=== PATIENT | female | born 1950 | race Caucasian/White ===

== ENCOUNTER 2021-10-22 12:10 | Emergency (ER) | payer MEDICARE, OTHER ==
--- NOTE | 2021-10-22 12:37 | ERPHSYRPT ---
- History of Present Illness Time Seen by Provider: 10/22/21 12:30 Source: patient Exam Limitations: no limitations Patient Subjective Stated Complaint: pt reports pain under her left shoulder blade, reports it is intermittent in nature and feels like pleurisy that she's e xperienced in the past. denies any injury or accident. Triage Nursing Assessment: pt is aox3, pupils perrl, afebrile, resps easy and non labored, cap refill < 3 seconds, radial pulses strong and equal, pt abd soft non tender. pt pain increased with movement, ROM sensation intact. skin pink warm dry. Physician History: Patient is a 70-year-old female presents to our emergency department with complaints of pain to her left shoulder blade. Patient has a history of pleurisy. Patient states the symptoms feels like pleurisy. Symptoms started yesterday. The pain described as an intermittent sensation. Pain worse with movement and palpation. Pain improved with rest. Patient had a cardiac history of clinic stents. Patient denies chest pain. No nausea vomiting or diaphoresis. Symptoms are mild to moderate in intensity. Patient voices no other complaints or concerns at this time. Timing/Duration: today Severity: moderate Modifying Factors: Improves With: movement Associated Symptoms: denies symptoms Allergies/Adverse Reactions: Sulfa (Sulfonamide Antibiotics) Allergy (Verified 10/22/21 12:30) Hx Tetanus, Diphtheria Vaccination/Date Given: Yes Hx Influenza Vaccination/Date Given: Yes Hx Pneumococcal Vaccination/Date Given: Yes Immunizations Up to Date: Yes Travel Risk - International Travel Have you traveled outside of the country in past 3 weeks: No - Coronavirus Screening Are you exhibiting any of the following symptoms?: No Close contact with a COVID-19 positive Pt in past 14-21 Days: No - Vaccine Status Have you recieved a Covid-19 vaccination: Yes 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: Achaogen - Vaccination Dates Date of 2cond Vaccination (if applicable): unk - Review of Systems Constitutional: No Symptoms, No Fever, No Chills Eyes: No Symptoms Ears, Nose, & Throat: No Symptoms Respiratory: No Symptoms, No Cough, No Dyspnea Cardiac: No Symptoms, No Chest Pain, No Edema, No Syncope Abdominal/Gastrointestinal: No Symptoms, No Abdominal Pain, No Nausea, No Vomiting, No Diarrhea Genitourinary Symptoms: No Symptoms, No Dysuria Musculoskeletal: No Symptoms, No Back Pain, No Neck Pain Skin: No Symptoms, No Rash Neurological: No Symptoms, No Dizziness, No Focal Weakness, No Sensory Changes Psychological: No Symptoms Endocrine: No Symptoms Hematologic/Lymphatic: No Symptoms Immunological/Allergic: No Symptoms All Other Systems: Reviewed and Negative - Past Medical History Pertinent Past Medical History: Yes Cardiac History: Coronary Artery Disease, High Cholesterol, Hypertension, Myocardial Infarction ([place]) Respiratory History: Pneumonia GI Medical History: Diverticulitis Psycho-Social History: Anxiety - Past Surgical History Past Surgical History: Yes Cardiac: Cardiac Catheterization, Cardiac Stent Gastrointestinal: Colon Resection Other Surgical History: oophorecetomy - Social History Smoking Status: Current every day smoker Drug Use: none Patient Lives Alone: No - Female History Hx Now: No - Nursing Vital Signs Nursing Vital Signs: Initial Vital Signs Temperature 98 F 10/22/21 12:17 Pulse Rate 81 10/22/21 12:17 Respiratory Rate 18 10/22/21 12:17 Blood Pressure 200/91 10/22/21 12:17 O2 Sat by Pulse Oximetry 97 10/22/21 12:17 Pain Scale Pain Intensity [Left Back] 10 Pain Intensity 4 - Physical Exam General Appearance: no apparent distress, alert Eye Exam: PERRL/EOMI, eyes nml inspection Ears, Nose, Throat Exam: normal ENT inspection, TMs normal, pharynx normal, moist mucous membranes Neck Exam: normal inspection, non-tender, supple, full range of motion Respiratory Exam: normal breath sounds, lungs clear, airway intact, No chest tenderness, No respiratory distress Cardiovascular Exam: regular rate/rhythm, normal heart sounds, normal peripheral pulses, No murmur Gastrointestinal/Abdomen Exam: soft, normal bowel sounds, No tenderness, No mass Back Exam: normal inspection, normal range of motion, other (Tenderness to palpation over left scapula. There are areas that appear to be trigger points. These areas are tender to palpation reproduces symptoms.), No CVA tenderness, No vertebral tenderness Extremity Exam: normal inspection, normal range of motion, pelvis stable Neurologic Exam: alert, oriented x 3, cooperative, normal mood/affect, nml cerebellar function, nml station & gait, sensation nml, No motor deficits Skin Exam: normal color, warm, dry, No rash Lymphatic Exam: No adenopathy SpO2 Interpretation: normal SpO2: 97 O2 Delivery: Room Air - Course Nursing assessment & vital signs reviewed: Yes EKG Interpreted by Me: RATE (75), Sinus Rhythm, NORMAL AXIS, LAFB, NORMAL INTERVALS Ordered Tests: Active Orders 24 hr Category Date Time Status Yarn Examiner STAT Care 10/22/21 12:25 Active EKG-ER Only STAT Care 10/22/21 12:24 Active IV Insertion STAT Care 10/22/21 12:24 Active Pulse Oximetry (ED) STAT Care 10/22/21 12:24 Active CHEST WITH CONTRAST [CT] Stat Exams 10/22/21 13:34 Completed CBC W DIFF Stat Lab 10/22/21 12:47 Completed CMP Stat Lab 10/22/21 12:47 Completed D-DIMER QUANTITATIVE Stat Lab 10/22/21 12:47 Completed NT PRO BNP Stat Lab 10/22/21 12:47 Completed TROPONIN Q3H Lab 10/22/21 12:47 Completed TROPONIN Q3H Lab 10/22/21 15:09 Completed TROPONIN Q3H Lab 10/22/21 18:30 Ordered TROPONIN Q3H Lab 10/22/21 21:30 Ordered TROPONIN Q3H Lab 10/23/21 00:30 Ordered UA W/RFX UR CULTURE Stat Lab 10/22/21 15:05 Completed Medication Summary Discontinued Medications Generic Name Dose Route Start Last Admin Trade Name Freq PRN Reason Stop Dose Admin Hydromorphone HCl 0.5 mg 10/22/21 15:25 10/22/21 15:31 Hydromorphone 1 Mg/1ml Inj 1 Mg/Ml Syringe IV 10/22/21 15:26 0.5 mg STAT ONE Administration Hydromorphone HCl Confirm 10/22/21 15:30 Hydromorphone 1 Mg/1ml Inj 1 Mg/Ml Syringe Administered 10/22/21 15:31 Dose 1 mg .ROUTE .STK-MED ONE Morphine Sulfate Confirm 10/22/21 12:47 Morphine Sulfate 4 Mg/Ml Injection Administered 10/22/21 12:48 Dose 4 mg .ROUTE .STK-MED ONE Morphine Sulfate 4 mg 10/22/21 12:58 10/22/21 13:00 Morphine Sulfate 4 Mg/Ml Injection IV 10/22/21 12:59 4 mg STAT ONE Administration Ondansetron HCl Confirm 10/22/21 12:46 Ondansetron Hcl 4 Mg/2 Ml Vial Administered 10/22/21 12:47 Dose 4 mg .ROUTE .STK-MED ONE Ondansetron HCl 4 mg 10/22/21 12:58 10/22/21 13:00 Ondansetron Hcl 4 Mg/2 Ml Vial IV 10/22/21 12:59 4 mg STAT ONE Administration Lab/Rad Data: Laboratory Result Diagrams 10/22/21 12:47 10/22/21 12:47 Laboratory Results 10/22/21 10/22/21 10/22/21 Range/Units 15:09 15:05 12:47 WBC (4.0-10.5) K/mm3 RBC (4.1-5.4) M/mm3 Hgb (12.0-16.0) gm/dl Hct (35-47) % MCV (78-100) fl MCH (26-32) pg MCHC (32-36) g/dl RDW (11.5-14.0) % Plt Count (150-450) K/mm3 MPV (7.5-11.0) fl Gran % (36.0-66.0) % Eos # (Auto) (0-0.5) Absolute Lymphs (auto) (1.0-4.6) Absolute Monos (auto) (0.0-1.3) Lymphocytes % (24.0-44.0) % Monocytes % (0.0-12.0) % Eosinophils % (0.00-5.0) % Basophils % (0.0-0.4) % Absolute Granulocytes (1.4-6.9) Basophils # (0-0.4) D-Dimer (215-500) ng/mL Sodium (137-145) mmol/L Potassium (3.5-5.1) mmol/L Chloride (98-107) mmol/L Carbon Dioxide (22-30) mmol/L Anion Gap (5-15) MEQ/L BUN (7-17) mg/dL Creatinine (0.52-1.04) mg/dL Estimated GFR ML/MIN Glucose (74-106) mg/dL Calcium (8.4-10.2) mg/dL Total Bilirubin (0.2-1.3) mg/dL AST (14-36) U/L ALT (0-35) U/L Alkaline Phosphatase (38-126) U/L Troponin I < 0.012 < 0.012 (0.000-0.034) ng/mL NT-Pro-B Natriuret Pep (0-900) pg/mL Serum Total Protein (6.3-8.2) g/dL Albumin (3.5-5.0) g/dL Urine Color YELLOW (YELLOW) Urine Appearance CLOUDY (CLEAR) Urine pH 6.0 (5-6) Ur Specific [place] 1.018 (1.005-1.025) Urine Protein NEGATIVE (Negative) Urine Ketones NEGATIVE (NEGATIVE) Urine Blood NEGATIVE (0-5) Mat[place]/ul Urine Nitrite NEGATIVE (NEGATIVE) Urine Bilirubin NEGATIVE (NEGATIVE) Urine Urobilinogen NEGATIVE (0-1) mg/dL Ur Leukocyte Esterase NEGATIVE (NEGATIVE) Urine WBC (Auto) 3-5 (0-5) /HPF Urine RBC (Auto) 0-2 (0-2) /HPF U Epithel Cells (Auto) FEW (FEW) /HPF Urine Bacteria (Auto) RARE (NEGATIVE) /HPF Urine Mucus (Auto) SLIGHT (NEGATIVE) /HPF Urine Culture Reflexed NO (NO) Urine Glucose NEGATIVE (NEGATIVE) mg/dL 10/22/21 10/22/21 10/22/21 Range/Units 12:47 12:47 12:47 WBC 11.1 H (4.0-10.5) K/mm3 RBC 4.46 (4.1-5.4) M/mm3 Hgb 13.2 (12.0-16.0) gm/dl Hct 41.8 (35-47) % MCV 93.7 (78-100) fl MCH 29.6 (26-32) pg MCHC 31.6 L (32-36) g/dl RDW 13.7 (11.5-14.0) % Plt Count 285 (150-450) K/mm3 MPV 9.9 (7.5-11.0) fl Gran % 83.9 H (36.0-66.0) % Eos # (Auto) 0.08 (0-0.5) Absolute Lymphs (auto) 1.08 (1.0-4.6) Absolute Monos (auto) 0.61 (0.0-1.3) Lymphocytes % 9.7 L (24.0-44.0) % Monocytes % 5.5 (0.0-12.0) % Eosinophils % 0.7 (0.00-5.0) % Basophils % 0.2 (0.0-0.4) % Absolute Granulocytes 9.35 H (1.4-6.9) Basophils # 0.02 (0-0.4) D-Dimer 1288 H* (215-500) ng/mL Sodium 133 L (137-145) mmol/L Potassium 4.1 (3.5-5.1) mmol/L Chloride 100 (98-107) mmol/L Carbon Dioxide 28 (22-30) mmol/L Anion Gap 10.0 (5-15) MEQ/L BUN 15 (7-17) mg/dL Creatinine 0.88 (0.52-1.04) mg/dL Estimated GFR > 60.0 ML/MIN Glucose 127 H (74-106) mg/dL Calcium 8.9 (8.4-10.2) mg/dL Total Bilirubin 0.60 (0.2-1.3) mg/dL AST 19 (14-36) U/L ALT 16 (0-35) U/L Alkaline Phosphatase 107 (38-126) U/L Troponin I (0.000-0.034) ng/mL NT-Pro-B Natriuret Pep 220 (0-900) pg/mL Serum Total Protein 6.5 (6.3-8.2) g/dL Albumin 3.8 (3.5-5.0) g/dL Urine Color (YELLOW) Urine Appearance (CLEAR) Urine pH (5-6) Ur Specific [place] (1.005-1.025) Urine Protein (Negative) Urine Ketones (NEGATIVE) Urine Blood (0-5) Mati/ul Urine Nitrite (NEGATIVE) Urine Bilirubin (NEGATIVE) Urine Urobilinogen (0-1) mg/dL Ur Leukocyte Esterase (NEGATIVE) Urine WBC (Auto) (0-5) /HPF Urine RBC (Auto) (0-2) /HPF U Epithel Cells (Auto) (FEW) /HPF Urine Bacteria (Auto) (NEGATIVE) /HPF Urine Mucus (Auto) (NEGATIVE) /HPF Urine Culture Reflexed (NO) Urine Glucose (NEGATIVE) mg/dL - Progress Progress: improved Progress Note: Patient reassessed. She feels well. No active pain. Work-up essentially nonremarkable. Troponin negative x2. CT chest negative for acute pathology. 10/22/21 16:17 EKG normal sinus rhythm. Patient voices no other complaints or concerns at this time. No indication for further work-up. Will discharge home. Patient is aware of the adrenal adenomas and the other findings observed on CT scan. She agrees to follow-up with her primary care doctor within 48 hours for reevaluation. Portions of this note were created with voice recognition technology. There may be grammatical, spelling, punctuation or sound alike errors 10/22/21 16:18 Counseled pt/family regarding: lab results, diagnosis, need for follow-up, rad results - Departure Departure Disposition: Home Clinical Impression: Atherosclerosis, Hiatal hernia, Lung granuloma, Granulomatous disease, Adrenal adenoma, Renal cyst, Spondylosis, Pain in scapula Condition: Stable Critical Care Time: No Referrals: LAZARA WHITTEN [Primary Care Provider] - Follow up/PCP as directed Instructions: Muscle Strain (DC) Additional Instructions: Discharge/Care Plan MELODIE AIKEN was seen on 10/22/21 in the Emergency Room. The patient was counseled regarding Diagnosis,Lab results, Imaging studies, need for follow up and when to return to the Emergency Room. Prescriptions given: Discharge Note I have spoken with the patient and/or caregivers. I have explained the patient's condition, diagnosis and treatment plan based on the information available to me at this time. I have answered the patient's and/or caregiver's questions and addressed any concerns. The patient and/or caregivers have as good understanding of the patient's diagnosis, condition and treatment plan as can be expected at this point. The vital signs have been stable. The patient's condition is stable and appropriate for discharge from the emergency department. The patient will pursue further outpatient evaluation with the primary care physician or other designated or consulting physician as outlined in the discharge instructions. The patient and/or caregivers are agreeable to this plan of care and follow-up instructions have been explained in detail. The patient and/or caregivers have received these instruction. The patient/and or caregivers are aware that any significant change in condition or worsening of symptoms should prompt an immediate return to this or the closest emergency department or call 911.
[2021-10-22] MEDS ORDERED: Zofran 4 MG/2 ML VIAL ONE (12:46)
[2021-10-22] MEDS ORDERED: MORPHINE SULFATE 4 MG INJ ONE (12:47)
[2021-10-22 12:49] LABS: Absolute Neutrophil Ct (ANC) 9.35 (1.4-6.9); BASOPHIL % 0.2 % (0.0-0.4); Basophil (Absolute #) 0.02 (0-0.4); Eosinophil % 0.7 % (0.00-5.0); Eosinophil (Absolute #) 0.08 (0-0.5); Hematocrit 41.8 % (35-47); Hemoglobin 13.2 gm/dl (12.0-16.0); Lymphocyte (Absolute #) 1.08 (1.0-4.6); Lymphocytes % 9.7 % (24.0-44.0); Mean Cell Volume 93.7 fl (78-100); Mean Corpuscular Hemoglobin 29.6 pg (26-32); Mean Corpuscular Hgb Concent. 31.6 g/dl (32-36); Mean Platelet Volume 9.9 fl (7.5-11.0); Monocyte (Absolute #) 0.61 (0.0-1.3); Monocytes % 5.5 % (0.0-12.0); Neutrophil % 83.9 % (36.0-66.0); Platelet Count 285 K/mm3 (150-450); Red Blood Count 4.46 M/mm3 (4.1-5.4); Red Cell Distribution Width 13.7 % (11.5-14.0); White Blood Count 11.1 K/mm3 (4.0-10.5)
[2021-10-22] MEDS ORDERED: MORPHINE SULFATE 4 MG INJ IV ONE (12:58)
[2021-10-22] MEDS ORDERED: Zofran 4 MG/2 ML VIAL IV ONE (12:58)
[2021-10-22 14:04] LABS: ALBUMIN 3.8 g/dL (3.5-5.0); ALKALINE PHOSPHATASE 107 U/L (38-126); BLOOD UREA NITROGEN 15 mg/dL (7-17); CHLORIDE 100 mmol/L (98-107); Calcium 8.9 mg/dL (8.4-10.2); Carbon Dioxide 28 mmol/L (22-30); Creatinine 1 0.88 mg/dL (0.52-1.04); EST GLOMERULAR FILTRATION RATE > 60.0 ML/MIN; Glucose 127 mg/dL (74-106); NT PRO BNP 220 pg/mL (0-900); Potassium 4.1 mmol/L (3.5-5.1); SGOT/AST 19 U/L (14-36); SGPT/ALT 16 U/L (0-35); SODIUM 133 mmol/L (137-145); Total Protein 6.5 g/dL (6.3-8.2)
[2021-10-22] MEDS ORDERED: Hydromorphone 1 mg/ml Injection IV ONE (15:25)
[2021-10-22 15:26] LABS: Appearance CLOUDY (CLEAR); Bacteria RARE /HPF (NEGATIVE); Bilirubin NEGATIVE (NEGATIVE); Blood NEGATIVE Ery/ul (0-5); Epithelial Cells FEW /HPF (FEW); Glucose NEGATIVE (NEGATIVE); Ketones NEGATIVE (NEGATIVE); Leukocyte Esterase NEGATIVE (NEGATIVE); Mucus SLIGHT /HPF (NEGATIVE); Nitrite NEGATIVE (NEGATIVE); Protein,Urine Dip NEGATIVE (Negative); RBC 0-2 /HPF (0-2); Specific Gravity 1.018 (1.005-1.025); Urobilinogen NEGATIVE mg/dL (0-1)
[2021-10-22] MEDS ORDERED: Hydromorphone 1 mg/ml Injection ONE (15:30)
--- NOTE | 2021-10-22 16:00 | XRAY ---
Exam: CT of the chest with IV contrast per PE protocol from 10/22/2021. CTDI: 21.07 mGy Comparison: None. Indication: 70-year-old female for rule out PE. The patient complains of upper left chest pain and upper left back pain while breathing; cough; nausea. D-dimer is 1288. Findings: Technique: Post-IV contrast axial images were obtained through the chest during automated injection of 100 cc of Isovue-370 contrast material. Reconstructed coronal and sagittal images were created and reviewed. Findings: The pulmonary arteries are well-opacified within the lobar and segmental branches and reveal no filling defects to suggest pulmonary emboli. No thoracic aortic aneurysm or dissection is seen. Some atherosclerotic vascular calcification is seen within the aortic arch and descending thoracic aorta. The heart size is normal. No pericardial effusion is seen. A mild hiatal hernia is evident. No abnormal mediastinal mass or pathological lymphadenopathy is seen. A portion of both lobes of the thyroid gland is seen. The lung sharif reveal some posterior compression atelectasis within both lower lobes. There is also minimal scarring or atelectasis at the anterior lateral left lung base. No dense air space infiltrates, pneumothorax, or pleural fluid is seen. There is a tiny calcified granuloma at the medial right lung base on axial image #16. The distal trachea and major central branching bronchi appear open. A few granulomatous calcifications are seen at the posterior margin of the left hilum. The upper abdomen reveals some thickening of the limbs of the right adrenal gland. In fact, there is a 2.5 cm x 1.3 cm oval-shaped nodule within the medial limb of the right adrenal gland measuring +12.5 Hounsfield units. I cannot exclude an adrenal adenoma at this level. Also, within the left adrenal gland, there is a 2.5 cm x 2.0 cm soft tissue mass measuring +7.8 Hounsfield units which may represent an adrenal adenoma as well. There is a 1.2 cm in diameter cortical cyst at the posterior lateral aspect of the middle third of the left kidney on axial image #241. A few small granulomatous calcifications are seen within the liver and spleen. The gallbladder appears mildly dilated measuring up to 4.3 cm in greatest width on axial image #240. In addition, there are couple tiny calcifications seen along the inferior right lateral margin of the gallbladder. It is not clear to me whether these represent 2 tiny gallstones within the lumen or some calcification within the gallbladder wall on axial image #242. These are also seen on sagittal images #50 and #51. The skeleton reveals no acute fracture or aggressive bone lesion. Spondylosis is seen throughout the visualized thoracolumbar spine. Impression: 1. I see no evidence of acute pulmonary embolism, thoracic aortic aneurysm, or thoracic aortic dissection. Mild atherosclerotic vascular calcification is seen. 2. There is a mild retrocardiac hiatal hernia present. 3. Mild compression atelectasis is seen at the posterior margin of both lower lung sharif. I believe there is also some minimal scarring/atelectasis at the anterior lateral left lung base. No other active lung disease is seen. 4. There are couple small calcifications within a mildly dilated gallbladder along the lower right lateral margin which could possibly represent gallstones. Calcification within the gallbladder wall is not completely excluded. 5. Bilateral relatively low attenuation adrenal masses are seen which might represent adrenal adenomas. If further clarification is needed, an MRI of the adrenal glands with in phase and out of phase imaging could be performed. 6. Old healed granulomatous disease.
[2021-10-22 16:20] VITALS: BP 125/65; PULSE 68; O2SAT 93
== END 2021-10-22 16:24 | disposition home or self-care (01) ==
LOC: ED 12:10
DX: J84.10 Pulmonary fibrosis, unspecified (principal); D71 Functional disorders of polymorphonuclear neutrophils; D35.00 Benign neoplasm of unspecified adrenal gland; N28.1 Cyst of kidney, acquired; I70.90 Unspecified atherosclerosis; K44.9 Diaphragmatic hernia without obstruction or gangrene; M47.9 Spondylosis, unspecified; M25.519 Pain in unspecified shoulder; E78.5 Hyperlipidemia, unspecified; I10 Essential (primary) hypertension; Z72.0 Tobacco use
CPT/HCPCS: 36000; 36415; 71260; 80053; 81001; 83880; 84484; 85025; 85379; 93005; 93041; 94760; 96374; 96375; 99284; J1170; J2270; J2405

== ENCOUNTER 2021-12-17 13:16 | Emergency (ER) | payer MEDICARE, OTHER ==
[2021-12-17] MEDS ORDERED: Catapres 0.1 MG PO ONE (13:38)
[2021-12-17] MEDS ORDERED: Catapres 0.1 MG ONE (13:46)
--- NOTE | 2021-12-17 13:52 | ERPHSYRPT ---
- History of Present Illness Source: patient Exam Limitations: no limitations Patient Subjective Stated Complaint: " I got my carotid tests done today and they said my blood pressure was high. My daughter thought I should come to the ER. Triage Nursing Assessment: Pt presents to ER with complaints of hypertension, states had an appointment today for carotid studies and noted her BP was high. She wished to be evaulated for that. She did not take her home BP medications today, she forgot. Pt is hypertensive upon arrival. Pt skin is pink, warm, and dry. Respirations are easy. Pt appears a little anxious. Complains of light headedness, slight headache. Pt is able to ambulate and communicate appropriately. Physician History: 71 yo wf who did not take her BP meds today presents after carotid dopplers at [facility] today because her BP is high. Pt denies chest pain/focal weakness but does have some dyspnea and a mild headache. Timing/Duration: today Severity: mild, moderate Modifying Factors: Improves With: nothing Associated Symptoms: headaches, No nausea, No vomiting, No abdominal pain, No shortness of breath, No heartburn, No diaphoresis, No cough, No chills, No chest pain, No fever, No loss of appetite, No malaise, No rash, No syncope, No seizure Allergies/Adverse Reactions: Sulfa (Sulfonamide Antibiotics) Allergy (Verified 12/17/21 13:28) Home Medications: ALPRAZolam 0.25 MG [xanAX 0.25 MG] 0.25 mg PO Q12H PRN PRN 12/17/21 [History] Amlodipine Besylate 5 mg [Norvasc 5 mg] 5 mg PO DAILY 12/17/21 [History] Clopidogrel Bisulfate 75 mg [PLAVIX 75 MG Tablet] 75 mg PO DAILY 12/17/21 [History] Lisinopril 5 mg [Zestril 5 MG] 5 mg PO DAILY 12/17/21 [History] Simvastatin 20Mg [Zocor 20Mg] 40 mg PO DAILY 12/17/21 [History] Hx Tetanus, Diphtheria Vaccination/Date Given: Yes Hx Influenza Vaccination/Date Given: Yes Hx Pneumococcal Vaccination/Date Given: No Immunizations Up to Date: Yes Travel Risk - International Travel Have you traveled outside of the country in past 3 weeks: No - Coronavirus Screening Are you exhibiting any of the following symptoms?: No Close contact with a COVID-19 positive Pt in past 14-21 Days: Yes - Vaccine Status Have you recieved a Covid-19 vaccination: Yes 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 - Vaccination Dates Date of 2cond Vaccination (if applicable): 2020 - Review of Systems Constitutional: No Symptoms Eyes: No Symptoms Ears, Nose, & Throat: No Symptoms Respiratory: No Symptoms Cardiac: No Symptoms Abdominal/Gastrointestinal: No Symptoms Genitourinary Symptoms: No Symptoms Musculoskeletal: No Symptoms Skin: No Symptoms Neurological: No Symptoms, Headache Psychological: No Symptoms Endocrine: No Symptoms Hematologic/Lymphatic: No Symptoms Immunological/Allergic: No Symptoms - Past Medical History Pertinent Past Medical History: Yes Cardiac History: Coronary Artery Disease, High Cholesterol, Hypertension, Myocardial Infarction ([place]) Respiratory History: Pneumonia GI Medical History: Diverticulitis Psycho-Social History: Anxiety - Past Surgical History Past Surgical History: Yes Cardiac: Cardiac Catheterization, Cardiac Stent Gastrointestinal: Colon Resection Other Surgical History: oophorecetomy - Social History Smoking Status: Light tobacco smoker Exposure to second hand smoke: No Drug Use: none Patient Lives Alone: No Significant Family History: no pertinent family hx - Female History Hx Now: No - Nursing Vital Signs Nursing Vital Signs: Initial Vital Signs Temperature 96.1 F 12/17/21 13:24 Pulse Rate 95 H 12/17/21 13:24 Respiratory Rate 18 12/17/21 13:24 Blood Pressure 234/91 12/17/21 13:24 O2 Sat by Pulse Oximetry 94 L 12/17/21 13:24 Pain Scale Pain Intensity 0 Hypertensive - Physical Exam General Appearance: no apparent distress Eye Exam: PERRL/EOMI, eyes nml inspection Ears, Nose, Throat Exam: normal ENT inspection, TMs normal, pharynx normal, moist mucous membranes Neck Exam: normal inspection, non-tender, supple, full range of motion, No meningismus, No mass, No Brudzinski, No Kernig's Respiratory Exam: normal breath sounds, lungs clear, airway intact Cardiovascular Exam: regular rate/rhythm, normal heart sounds, normal peripheral pulses, No murmur Gastrointestinal/Abdomen Exam: soft, normal bowel sounds, No tenderness Back Exam: normal inspection, normal range of motion, No CVA tenderness, No vertebral tenderness Extremity Exam: normal inspection, normal range of motion Neurologic Exam: alert, oriented x 3, cooperative, hollow ware maker II-XII nml as tested, normal mood/affect, nml cerebellar function, nml station & gait, sensation nml Skin Exam: normal color, warm, dry Lymphatic Exam: No adenopathy SpO2: 94 O2 Delivery: Room Air - Course EKG Interpreted by Me: RATE (NSR/R74/Prolonged QTc/LAFB/Poor Rwave pr ogression/Flat Twaves) - CT Exams Head CT Interpretation: Discussed w/radiologist (Nothing acute) Ordered Tests: Active Orders 24 hr Category Date Time Status EKG-ER Only STAT Care 12/17/21 13:50 Completed HEAD WITHOUT CONTRAST [CT] Stat Exams 12/17/21 13:50 Completed CBC W DIFF Stat Lab 12/17/21 14:00 Completed CMP Stat Lab 12/17/21 14:00 Completed NT PRO BNP Stat Lab 12/17/21 14:00 Completed TROPONIN Q3H Lab 12/17/21 14:00 Completed Medication Summary Discontinued Medications Generic Name Dose Route Start Last Admin Trade Name Tom PRN Reason Stop Dose Admin Clonidine 0.2 mg 12/17/21 13:38 12/17/21 13:47 Clonidine Hcl 0.1 Mg Tablet PO 12/17/21 13:39 0.2 mg STAT ONE Administration Clonidine Confirm 12/17/21 13:46 Clonidine Hcl 0.1 Mg Tablet Administered 12/17/21 13:47 Dose 0.2 mg .ROUTE .STK-MED ONE Lab/Rad Data: Laboratory Result Diagrams 12/17/21 14:00 12/17/21 14:00 Laboratory Results 12/17/21 12/17/21 12/17/21 Range/Units 14:00 14:00 14:00 WBC 8.4 (4.0-10.5) K/mm3 RBC 4.67 (4.1-5.4) M/mm3 Hgb 13.9 (12.0-16.0) gm/dl Hct 43.3 (35-47) % MCV 92.7 (78-100) fl MCH 29.8 (26-32) pg MCHC 32.1 (32-36) g/dl RDW 14.4 H (11.5-14.0) % Plt Count 290 (150-450) K/mm3 MPV 10.6 (7.5-11.0) fl Gran % 79.6 H (36.0-66.0) % Eos # (Auto) 0.12 (0-0.5) Absolute Lymphs (auto) 1.11 (1.0-4.6) Absolute Monos (auto) 0.47 (0.0-1.3) Lymphocytes % 13.2 L (24.0-44.0) % Monocytes % 5.6 (0.0-12.0) % Eosinophils % 1.4 (0.00-5.0) % Basophils % 0.2 (0.0-0.4) % Absolute Granulocytes 6.69 (1.4-6.9) Basophils # 0.02 (0-0.4) Sodium 141 (137-145) mmol/L Potassium 4.0 (3.5-5.1) mmol/L Chloride 106 (98-107) mmol/L Carbon Dioxide 28 (22-30) mmol/L Anion Gap 11.2 (5-15) MEQ/L BUN 15 (7-17) mg/dL Creatinine 0.86 (0.52-1.04) mg/dL Estimated GFR > 60.0 ML/MIN Glucose 133 H (74-106) mg/dL Calcium 9.2 (8.4-10.2) mg/dL Total Bilirubin 0.50 (0.2-1.3) mg/dL AST 22 (14-36) U/L ALT 17 (0-35) U/L Alkaline Phosphatase 102 (38-126) U/L Troponin I < 0.012 (0.000-0.034) ng/mL NT-Pro-B Natriuret Pep 366 (0-900) pg/mL Serum Total Protein 6.6 (6.3-8.2) g/dL Albumin 3.9 (3.5-5.0) g/dL - Progress Progress: improved Progress Note: 12/17/21 15:05 BP decreased after 0.2 po Clonidine - Departure Departure Disposition: Home Clinical Impression: Hypertensive urgency Condition: Stable Critical Care Time: No Referrals: LAZARA WHITTEN [Primary Care Provider] - Follow up/PCP as directed Instructions: Malignant Hypertension (DC) Additional Instructions: Take your blood pressure medication when you get home Return to ER for chest pain/focal weakness/worsening headache
--- NOTE | 2021-12-17 14:22 | XRAY ---
Indication: Headache. High blood pressure. Multiple contiguous axial images obtained through the head without contrast. Comparison: None Normal appearing brain parenchyma, ventricles, and bony calvarium for patient's age. Mild mucosal thickening of both maxillary and lesser degree both ethmoid sinuses. Mastoid air cells are clear. Impression: Mild paranasal sinus disease. Remaining CT head without contrast exam is normal.
[2021-12-17 14:30] LABS: Absolute Neutrophil Ct (ANC) 6.69 (1.4-6.9); Basophil (Absolute #) 0.02 (0-0.4); Eosinophil % 1.4 % (0.00-5.0); Eosinophil (Absolute #) 0.12 (0-0.5); Hematocrit 43.3 % (35-47); Hemoglobin 13.9 gm/dl (12.0-16.0); Lymphocyte (Absolute #) 1.11 (1.0-4.6); Lymphocytes % 13.2 % (24.0-44.0); Mean Cell Volume 92.7 fl (78-100); Mean Corpuscular Hemoglobin 29.8 pg (26-32); Mean Corpuscular Hgb Concent. 32.1 g/dl (32-36); Mean Platelet Volume 10.6 fl (7.5-11.0); Monocyte (Absolute #) 0.47 (0.0-1.3); Monocytes % 5.6 % (0.0-12.0); Neutrophil % 79.6 % (36.0-66.0); Platelet Count 290 K/mm3 (150-450); Red Blood Count 4.67 M/mm3 (4.1-5.4); Red Cell Distribution Width 14.4 % (11.5-14.0); White Blood Count 8.4 K/mm3 (4.0-10.5)
[2021-12-17 14:46] LABS: ALBUMIN 3.9 g/dL (3.5-5.0); ALKALINE PHOSPHATASE 102 U/L (38-126); ANION GAP 11.2 MEQ/L (5-15); BLOOD UREA NITROGEN 15 mg/dL (7-17); CHLORIDE 106 mmol/L (98-107); Calcium 9.2 mg/dL (8.4-10.2); Carbon Dioxide 28 mmol/L (22-30); Creatinine 1 0.86 mg/dL (0.52-1.04); EST GLOMERULAR FILTRATION RATE > 60.0 ML/MIN; Glucose 133 mg/dL (74-106); NT PRO BNP 366 pg/mL (0-900); SGOT/AST 22 U/L (14-36); SGPT/ALT 17 U/L (0-35); SODIUM 141 mmol/L (137-145); Total Protein 6.6 g/dL (6.3-8.2)
[2021-12-17 15:04] VITALS: BP 161/94; PULSE 70
[2021-12-17 15:06] VITALS: O2SAT 94
== END 2021-12-17 15:20 | disposition home or self-care (01) ==
LOC: ED 13:16
DX: I16.0 Hypertensive urgency (principal); I10 Essential (primary) hypertension; Z72.0 Tobacco use; R06.00 Dyspnea, unspecified; R51.9 Headache, unspecified; I25.10 Atherosclerotic heart disease of native coronary artery without angina pectoris; E78.5 Hyperlipidemia, unspecified; Z79.01 Long term (current) use of anticoagulants; Z79.899 Other long term (current) drug therapy
CPT/HCPCS: 36000; 36415; 70450; 80053; 83880; 84484; 85025; 93005; 99284; A9270-GY

== ENCOUNTER 2024-07-16 09:25 | Emergency (ER) | payer MEDICARE, OTHER ==
[2024-07-16 09:37] VITALS: RESP 18; TEMP 97.2
--- NOTE | 2024-07-16 09:48 | ERPHSYRPT ---
- History of Present Illness Time Seen by Provider: 07/16/24 09:42 Source: patient Exam Limitations: no limitations Patient Subjective Stated Complaint: Pt states "I mowed and weedeated on friday and on fri I could not get out of bed and my lower back is killing me. I co uldn't sleep last night at all and I have not taken any of my meds today>" Triage Nursing Assessment: Pt presented alert and oriented X 3, skin pwd. PT ambulates with a slow stiff gait. Pt moans when she moves and relaxes when she stops moving. Physician History: Patient is here with right low back pain. Patient states that she was doing more mowing and weed whacking 3 days prior to arrival. She had no falls or other trauma. States that she was just more active than normal. She woke up and she had pain over her right sciatic nerve radiating down her right leg. She states that she has no other red flag symptoms for back pain. She has no numbness, saddle anesthesia, loss of bowel or bladder dysfunction, previous history of cancer or known bone metastasis. She states that she took ibuprofen at home for the pain. This did help somewhat. Patient states that her last dose of ibuprofen was greater than 48 hours ago. Patient is taking PO well. Same number of urinations and defecations. The patient has no signs of altered mental status, nuchal rigidity, signs of meningitis. The patient is up-to-date on all vaccinations. Allergies/Adverse Reactions: Sulfa (Sulfonamide Antibiotics) Allergy (Verified 12/17/21 13:28) Home Medications: ALPRAZolam 0.25 MG [xanAX 0.25 MG] 0.25 mg PO Q12H PRN PRN 12/17/21 [History] Amlodipine Besylate 5 mg [Norvasc 5 mg] 5 mg PO DAILY 12/17/21 [History] Clopidogrel Bisulfate [PLAVIX Tablet] 75 mg PO DAILY 12/17/21 [History] Lisinopril 5 mg [Zestril 5 MG] 5 mg PO DAILY 12/17/21 [History] Simvastatin 20Mg [Zocor 20Mg] 40 mg PO DAILY 12/17/21 [History] Hx Tetanus, Diphtheria Vaccination/Date Given: Yes Hx Influenza Vaccination/Date Given: Yes Hx Pneumococcal Vaccination/Date Given: No Immunizations Up to Date: No Travel Risk - International Travel Have you traveled outside of the country in past 3 weeks: No - Emerging Infectious Disease Are you exhibiting symptoms associated with any current EIDs: No - Past Medical History Pertinent Past Medical History: Yes Cardiac History: Coronary Artery Disease, High Cholesterol, Hypertension, Myocardial Infarction ([place]) Respiratory History: Pneumonia GI Medical History: Diverticulitis Psycho-Social History: Anxiety - Past Surgical History Past Surgical History: Yes Cardiac: Cardiac Catheterization, Cardiac Stent Gastrointestinal: Colon Resection Other Surgical History: oophorecetomy Significant Family History: no pertinent family hx - Social History Smoking Status: Light tobacco smoker Exposure to second hand smoke: No Drug Use: none Patient Lives Alone: No - Social Determinants of Health Will the patient participate in the screening: Yes Do you worry about a steady place to live?: No Do you have any problems with any of the following?: No known problems In the past 12 months,have you had to go without utilities?: No Transportation Issues: No Has anyone in your support network made you feel unsafe?: No Have you or anyone in your house had to go without enough: No - Nursing Vital Signs Nursing Vital Signs: Initial Vital Signs Temperature 97.2 F 07/16/24 09:32 Pulse Rate 64 07/16/24 09:32 Respiratory Rate 18 07/16/24 09:32 Blood Pressure 202/100 07/16/24 09:32 O2 Sat by Pulse Oximetry 95 07/16/24 09:32 Pain Scale Pain Intensity [Lower Back] 6 Pain Intensity 4 - Physical Exam SpO2 Interpretation: normal SpO2: 95 Comments: 07/16/24 09:47 Review of Systems Constitutional: Negative for fever. HENT: Negative for congestion. Respiratory: Negative for shortness of breath. Cardiovascular: Negative for chest pain. Gastrointestinal: Negative for abdominal pain. Genitourinary: Negative for dysuria. Musculoskeletal: Back pain Skin: Negative for rash. Neurological: Negative for headaches. Psychiatric/Behavioral: Negative for behavioral problems. All other systems reviewed and are negative. Physical Exam Vitals signs and nursing note reviewed. Constitutional: Appearance: Patient is well-developed. HENT: Head: Normocephalic and atraumatic. Eyes: Conjunctiva/sclera: Conjunctivae normal. Neck: Musculoskeletal: Normal range of motion. Trachea: No tracheal deviation. Cardiovascular: Rate and Rhythm: Normal rate. Pulmonary: Effort: Pulmonary effort is normal. No respiratory distress. Abdominal: Palpations: Abdomen is soft. Musculoskeletal: General: Right low back tenderness over sciatic nerve. No obvious deformity, sensation intact, 2+ capillary refill, 2 point tactile discrimination intact. 5 out of 5 strength. Full range of motion without pain. Compartments are soft, nontender. Overlying skin shows no tenting, bruising, ecchymosis. No saddle anesthesia Skin: General: Skin is warm and dry. Neurological/ Psychiatric: Mental Status: Mental status, behavior, interaction with environment is appropriate for patient's age and condition - Course Nursing assessment & vital signs reviewed: Yes Ordered Tests: Active Orders 24 hr Category Date Time Status HIP UNI (2V) INCL PEL IF DONE Stat Exams 07/16/24 09:42 Completed LUMBAR LIMITED (2 OR 3 VIEWS) Stat Exams 07/16/24 09:43 Completed Medication Summary Discontinued Medications Generic Name Dose Route Start Last Admin Trade Name Tom PRN Reason Stop Dose Admin Acetaminophen 1,000 mg 07/16/24 09:43 07/16/24 10:00 Acetaminophen 500 Mg Tablet PO 07/16/24 09:44 1,000 mg STAT STA Administration Acetaminophen Confirm 07/16/24 09:55 Acetaminophen 500 Mg Tablet Administered 07/16/24 09:56 Dose 1,000 mg .ROUTE .STK-MED ONE Lidocaine 1 patch 07/16/24 09:43 07/16/24 10:00 Lidocaine Hcl 1 Patch Patch TOP 07/16/24 09:44 1 patch ONCE ONE Administration Oxycodone HCl 10 mg 07/16/24 10:57 Oxycodone Hcl 10 Mg Controlled Release Tablet PO 07/16/24 10:58 ONCE ONE - Progress Progress: improved Progress Note: 07/16/24 09:47 Plan for x-ray, oral pain medication, lidocaine patch here in the emergency department 07/16/24 11:01 Patient's pain is improving. X-ray negative for acute fracture, dislocation, other obvious abnormality. Patient's pain is most in line with acute sciatic back pain. Plan to treat with lidocaine patches going home, Medrol Dosepak. Patient will follow-up closely with her PCP for neurological reexam. We did give 1 oral oxycodone given continued pain here in the emergency department. She will get a ride home and return for her car tomorrow. We did discuss typical narcotic precautions with the patient and her who was present. Strict turn precautions given. Counseled pt/family regarding: diagnosis, need for follow-up, rad results - Departure Departure Disposition: Home Clinical Impression: Right sciatic nerve pain Condition: Stable Critical Care Time: No Referrals: EARNEST VALDEZ MD [Primary Care Provider] - Follow up/PCP as directed Instructions: Low Back Pain (DC), Sciatica (DC) Prescriptions: Lidocaine HCl 5% Patch [Lidoderm Patch 5%] 1 patch TP DAILY 7 Days #7 patch Methylprednisolone Packet [Medrol Dosepack] 4 mg PO UD #30 packet
[2024-07-16] MEDS ORDERED: TYLENOL EXTRA STRENGTH 500 MG ONE (09:55)
[2024-07-16] MEDS: TYLENOL EXTRA STRENGTH 500 MG PO STA (10:00)
[2024-07-16] MEDS: Lidoderm Patch 5% TOP ONE (10:00)
--- NOTE | 2024-07-16 10:37 | XRAY ---
Indication: Pain. No known injury. Comparison: None 3 view lumbar spine demonstrates 5 lumbar segments with osteopenia, mild/moderate multilevel degenerative spondylosis greatest at L5-S1, degenerative changes both hips reported separately, pelvic suture material, and extensive scattered vascular calcifications. No other bony, articular, or soft tissue abnormalities.
--- NOTE | 2024-07-16 10:39 | XRAY ---
Indication: Right hip pain. No known injury. Comparison: None AP pelvis and 2 view right hip demonstrates osteopenia, lower lumbar degenerative spondylosis reported separately, moderate degenerative changes both hips, 1 cm right groin calcified node, pelvic suture material, and extensive scattered vascular calcifications. No other bony, articular, or soft tissue abnormalities.
[2024-07-16 10:51] VITALS: O2SAT 95
[2024-07-16 11:03] VITALS: BP 175/72; PULSE 52
[2024-07-16] MEDS ORDERED: OXYCODONE-ACETAMINOPHEN 10-325 ONE (11:03)
[2024-07-16] MEDS: Oxycontin 10 MG ER PO ONE (11:16)
== END 2024-07-16 11:23 | disposition home or self-care (01) ==
LOC: ED 09:25
DX: M54.31 Sciatica, right side (principal); E78.5 Hyperlipidemia, unspecified; I10 Essential (primary) hypertension; Z79.52 Long term (current) use of systemic steroids; Z79.02 Long term (current) use of antithrombotics/antiplatelets; Z79.899 Other long term (current) drug therapy; Z72.0 Tobacco use
CPT/HCPCS: 72100; 73502; 99283; A9270-GY

== ENCOUNTER 2025-10-07 11:33 | Emergency (ER) | payer MEDICARE, OTHER ==
[2025-10-07 11:46] VITALS: TEMP 97.9
[2025-10-07 12:57] LABS: BASOPHIL % 0.7 % (0.1-1.2); Basophil (Absolute #) 0.06 x10^3/uL (0.01-0.08); Eosinophil (Absolute #) 0.14 x10^3/uL (0.04-0.36); Hematocrit 43.1 % (34.1-44.9); Hemoglobin 14.1 g/dL (11.2-15.7); IMMATURE GRAN # 0.04 x10^3u/L (0.001-0.031); IMMATURE GRAN % 0.5 % (0.001-0.429); Lymphocyte (Absolute #) 1.42 x10^3/uL (1.18-3.74); Mean Corpuscular Hemoglobin 30.0 pg (25.6-32.2); Mean Corpuscular Hgb Concent. 32.7 g/dL (32.2-35.5); Monocyte (Absolute #) 0.58 x10^3/uL (0.24-0.86); NUCLEATED RBC # 0.00 x10^3u/L (0.00-0.012); NUCLEATED RBC % 0.0 % (0.00-0.2); Platelet Count 271 x10^3/uL (182-369); Red Blood Count 4.70 x10^6/uL (3.93-5.22); White Blood Count 8.5 x10^3/uL (3.98-10.04)
[2025-10-07 13:02] LABS: Calcium 9.8 mg/dL (8.4-10.2); Carbon Dioxide 24.0 mmol/L (22-30); Creatinine 1 0.89 mg/dL (0.52-1.04); EST GLOMERULAR FILTRATION RATE 68.8 ML/MIN; Glucose 104.0 mg/dL (74-106); Potassium 4.4 mmol/L (3.5-5.1); SGOT/AST 29.0 U/L (14-36); SGPT/ALT 20.0 U/L (0-35); Total Protein 7.2 g/dL (6.3-8.2)
--- NOTE | 2025-10-07 13:15 | XRAY ---
Indication: Short of breath. Comparison: None PA/lateral chest hyperinflated and clear. Heart not enlarged with incidental coronary stent. Bony thorax intact with osteopenia and mild degenerative changes. Impression: Nonacute chest with chronic features.
[2025-10-07 13:16] LABS: NT PRO BNPII 461.0 pg/mL (<300); TROPONIN 0.013 ng/mL (0.000-0.033)
--- NOTE | 2025-10-07 15:32 | XRAY ---
Indication: Elevated D-dimer. Pulmonary embolus. Multiple contiguous axial images obtained through the chest using 80 cc Isovue 370 contrast and PE protocol. Comparison: October 22, 2021 Good opacification pulmonary arteries to include lobar and segmental branches. No pulmonary embolus. Heart not enlarged again with scattered coronary calcifications. Aorta again mildly arteriosclerotic without aneurysm/dissection. Stable small left hilar calcified node. No pathologic mediastinal/hilar lymphadenopathy. Interval enlarging moderate-sized hiatal hernia again with partial intrathoracic stomach. Lungs again demonstrates minimal bibasilar dependent atelectasis. No interval developing pulmonary mass/nodule, infiltrate, or effusion. Bony thorax intact again with osteopenia and minimal/mild multilevel degenerative spondylosis. New concave deformity superior endplate T11 either remote fracture versus Schmorl node. Limited upper abdomen again demonstrates incidental tiny fundal gallbladder, small left renal cysts, and small bilateral adrenal adenomas. Impression: 1. Continued negative for pulmonary embolus. No new/acute cardiopulmonary abnormalities. 2. Chronic findings including arteriosclerotic disease, hiatal hernia with partial intrathoracic stomach, chronic bony findings, tiny gallstone, small left renal cysts, small bilateral adrenal adenomas, and old granulomatous disease.
[2025-10-07] MEDS: DUONEB 0.5-3 MG/3 ml Neb IH ONE (16:35)
[2025-10-07] MEDS ORDERED: DUONEB 0.5-3 MG/3 ml Neb IH ONE (16:35)
[2025-10-07 21:08] VITALS: PULSE 60
[2025-10-07 22:02] VITALS: BP 163/82; RESP 21; O2SAT 93
--- NOTE | 2025-10-07 22:14 | ERPHSYRPT ---
- History of Present Illness Time Seen by Provider: 10/07/25 12:12 Patient Subjective Stated Complaint: Pt. states, "My blood pressure has been running high since Friday when I went to heart doctor, they weren't too concerned about it. They just told me to monitor and then call if I felt bad." Triage Nursing Assessment: Pt. ambulated to room without difficulty, A&Ox3, Skin P/W/D, REsp. normal, slightly labored, SOB at rest, unable to speak full sentences, Able to move all four extremities. Physician History: 74-year-old female ho coronary artery disease, status post multiple stents 5 years ago+, followed closely by cardiology at [facility], presenting with several weeks of shortness of breath, with acute worsening of dyspnea x 1 week. 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 over the last few days she has been unable to walk around her home, is short of breath after approximately 5 feet and has to stop and catch her breath. Daughter has noticed that she is unable to finish her sentences without stopping to catch her breath. No chest pain. However notes jaw tightness sensation. She notes that her prior heart attacks never presented with chest pain, but rather dyspnea similar to this episode. No fevers, chills, cough, URI symptoms. No history of asthma or COPD. No GI symptoms. No syncope or palpitations. Has been tracking her blood pressures at home. Over the last week has been logging her blood pressures at home which have been persistently elevated 190- 200s. Denies vision changes, diplopia. No headache currently. Allergies/Adverse Reactions: Sulfa (Sulfonamide Antibiotics) Allergy (Verified 12/17/21 13:28) Home Medications: Amlodipine Besylate 5 mg [Norvasc 5 mg] 5 mg PO DAILY 10/07/25 [History] Atorvastatin Calcium 80 mg PO DAILY 10/07/25 [History] Frantz/D3/Mag11/Zinc/Electrification Adviser/Cesar/Bor [Caltrate 600+D Plus Tablet] 1 each PO DAILY 10/07/25 [History] Carvedilol 3.125 mg [Coreg 3.125 MG] 3.125 mg PO BID 10/07/25 [History] Cholecalciferol (Vitamin D3) [Vitamin D] 5,000 unit PO DAILY 10/07/25 [History] Clopidogrel Bisulfate [Plavix] 75 mg PO DAILY 10/07/25 [History] Losartan Potassium 100 mg PO DAILY 10/07/25 [History] Metformin HCl 500 mg [Glucophage 500 MG] 500 mg PO DAILY 10/07/25 [History] Hx Tetanus, Diphtheria Vaccination/Date Given: Yes Hx Influenza Vaccination/Date Given: Yes Hx Pneumococcal Vaccination/Date Given: Yes Travel Risk - International Travel Have you traveled outside of the country in past 3 weeks: No - Emerging Infectious Disease Are you exhibiting symptoms associated with any current EIDs: No - Past Medical History Pertinent Past Medical History: Yes Cardiac History: Coronary Artery Disease, High Cholesterol, Hypertension, Myocardial Infarction ([place]) Respiratory History: Pneumonia GI Medical History: Diverticulitis Psycho-Social History: Anxiety - Past Surgical History Past Surgical History: Yes Cardiac: Cardiac Catheterization, Cardiac Stent Gastrointestinal: Colon Resection Other Surgical History: oophorecetomy Significant Family History: no pertinent family hx - Social History Smoking Status: Former smoker Exposure to second hand smoke: Yes Drug Use: none - Social Determinants of Health Will the patient participate in the screening: Declined to provide - Nursing Vital Signs Nursing Vital Signs: Initial Vital Signs Pulse Rate 46 L 10/07/25 11:31 Respiratory Rate 14 10/07/25 11:31 Blood Pressure 183/70 10/07/25 11:31 Pain Scale Pain Intensity 0 - Physical Exam Respiratory Exam: normal breath sounds, lungs clear, No crackles/rales, No wheezing Cardiovascular/Chest Exam: normal heart sounds, normal peripheral pulses, bradycardia Abdominal/Gastrointestinal Exam: soft, No tenderness, No distention Neurologic Exam: alert, oriented x 3, cooperative SpO2 Interpretation: normal SpO2: 93 Ordered Tests: Active Orders 24 hr Category Date Time Status EKG-ER Only STAT Care 10/07/25 17:08 Completed CHEST 2 VIEWS (PA AND LAT) Stat Exams 10/07/25 12:43 Completed CHEST WITH CONTRAST [CT] Stat Exams 10/07/25 13:38 Completed CBC W DIFF Stat Lab 10/07/25 11:45 Completed CMP Stat Lab 10/07/25 11:45 Completed D-DIMER QUANTITATIVE Stat Lab 10/07/25 11:45 Completed Direct Bilirubin Stat Lab 10/07/25 11:45 Completed Lactic Acid Stat Lab 10/07/25 12:43 Completed NT PRO BNPII Stat Lab 10/07/25 11:45 Completed TROPONIN Q4H Lab 10/07/25 11:45 Completed TROPONIN Q4H Lab 10/07/25 17:15 Completed TROPONIN Q4H Lab 10/07/25 21:10 Completed Respiratory Therapy Assessment DAILY RT 10/07/25 16:52 Active Medication Summary Discontinued Medications Generic Name Dose Route Start Last Admin Trade Name Tom PRN Reason Stop Dose Admin Albuterol/Ipratropium 3 ml 10/07/25 16:33 10/07/25 16:35 Ipratropium/Albuterol Sulfate 3 Ml Ampul.Neb IH 10/07/25 16:34 3 ml STAT ONE Administration Albuterol/Ipratropium Confirm 10/07/25 16:35 Ipratropium/Albuterol Sulfate 3 Ml Ampul.Neb Administered 10/07/25 16:36 Dose 3 ml IH .STK-MED ONE Lab/Rad Data: Laboratory Result Diagrams 10/07/25 11:45 10/07/25 11:45 Laboratory Results 10/07/25 10/07/25 10/07/25 Range/Units 21:10 17:15 12:43 WBC (3.98-10.04) x10^3/uL RBC (3.93-5.22) x10^6/uL Hgb (11.2-15.7) g/dL Hct (34.1-44.9) % MCV (79.4-94.8) fL MCH (25.6-32.2) pg MCHC (32.2-35.5) g/dL RDW (11.7-14.4) % Plt Count (182-369) x10^3/uL MPV (9.4-12.3) fL Gran % (34.0-71.1) % Immature Gran % (Auto) (0.001-0.429) % Nucleat RBC Rel Count (0.00-0.2) % Eos # (Auto) (0.04-0.36) x10^3/uL Immature Gran # (Auto) (0.001-0.031) x10^3u/L Absolute Lymphs (auto) (1.18-3.74) x10^3/uL Absolute Monos (auto) (0.24-0.86) x10^3/uL Absolute Nucleated RBC (0.00-0.012) x10^3u/L Lymphocytes % (19.3-51.7) % Monocytes % (4.7-12.5) % Eosinophils % (0.7-5.8) % Basophils % (0.1-1.2) % Absolute Granulocytes (1.56-6.13) x10^3/uL Basophils # (0.01-0.08) x10^3/uL D-Dimer (0.0-0.50) mg/L Sodium (135-145) mmol/L Potassium (3.5-5.1) mmol/L Chloride (98-107) mmol/L Carbon Dioxide (22-30) mmol/L Anion Gap (5-15) MEQ/L BUN (7-17) mg/dL Creatinine (0.52-1.04) mg/dL Estimated GFR ML/MIN Glucose (74-106) mg/dL Lactic Acid 1.4 (0.4-2.0) Calcium (8.4-10.2) mg/dL Total Bilirubin (0.2-1.3) mg/dL Direct Bilirubin (0.0-0.4) mg/dL AST (14-36) U/L ALT (0-35) U/L Alkaline Phosphatase (38-126) U/L Troponin I 0.016 0.014 (0.000-0.033) ng/mL NT-Pro-B Natriuret Pep (<300) pg/mL Serum Total Protein (6.3-8.2) g/dL Albumin (3.5-5.0) g/dL 10/07/25 10/07/25 10/07/25 Range/Units 11:45 11:45 11:45 WBC (3.98-10.04) x10^3/uL RBC (3.93-5.22) x10^6/uL Hgb (11.2-15.7) g/dL Hct (34.1-44.9) % MCV (79.4-94.8) fL MCH (25.6-32.2) pg MCHC (32.2-35.5) g/dL RDW (11.7-14.4) % Plt Count (182-369) x10^3/uL MPV (9.4-12.3) fL Gran % (34.0-71.1) % Immature Gran % (Auto) (0.001-0.429) % Nucleat RBC Rel Count (0.00-0.2) % Eos # (Auto) (0.04-0.36) x10^3/uL Immature Gran # (Auto) (0.001-0.031) x10^3u/L Absolute Lymphs (auto) (1.18-3.74) x10^3/uL Absolute Monos (auto) (0.24-0.86) x10^3/uL Absolute Nucleated RBC (0.00-0.012) x10^3u/L Lymphocytes % (19.3-51.7) % Monocytes % (4.7-12.5) % Eosinophils % (0.7-5.8) % Basophils % (0.1-1.2) % Absolute Granulocytes (1.56-6.13) x10^3/uL Basophils # (0.01-0.08) x10^3/uL D-Dimer 1.04 H* (0.0-0.50) mg/L Sodium 135 (135-145) mmol/L Potassium 4.4 (3.5-5.1) mmol/L Chloride 102 (98-107) mmol/L Carbon Dioxide 24 (22-30) mmol/L Anion Gap 13.2 (5-15) MEQ/L BUN 14 (7-17) mg/dL Creatinine 0.89 (0.52-1.04) mg/dL Estimated GFR 68.8 ML/MIN Glucose 104 (74-106) mg/dL Lactic Acid (0.4-2.0) Calcium 9.8 (8.4-10.2) mg/dL Total Bilirubin 0.90 (0.2-1.3) mg/dL Direct Bilirubin 0.3 (0.0-0.4) mg/dL AST 29 (14-36) U/L ALT 20 (0-35) U/L Alkaline Phosphatase 104 (38-126) U/L Troponin I 0.013 (0.000-0.033) ng/mL NT-Pro-B Natriuret Pep 461 (<300) pg/mL Serum Total Protein 7.2 (6.3-8.2) g/dL Albumin 4.2 (3.5-5.0) g/dL 10/07/25 Range/Units 11:45 WBC 8.5 (3.98-10.04) x10^3/uL RBC 4.70 (3.93-5.22) x10^6/uL Hgb 14.1 (11.2-15.7) g/dL Hct 43.1 (34.1-44.9) % MCV 91.7 (79.4-94.8) fL MCH 30.0 (25.6-32.2) pg MCHC 32.7 (32.2-35.5) g/dL RDW 13.3 (11.7-14.4) % Plt Count 271 (182-369) x10^3/uL MPV 11.2 (9.4-12.3) fL Gran % 73.4 H (34.0-71.1) % Immature Gran % (Auto) 0.5 H (0.001-0.429) % Nucleat RBC Rel Count 0.0 (0.00-0.2) % Eos # (Auto) 0.14 (0.04-0.36) x10^3/uL Immature Gran # (Auto) 0.04 H (0.001-0.031) x10^3u/L Absolute Lymphs (auto) 1.42 (1.18-3.74) x10^3/uL Absolute Monos (auto) 0.58 (0.24-0.86) x10^3/uL Absolute Nucleated RBC 0.00 (0.00-0.012) x10^3u/L Lymphocytes % 16.8 L (19.3-51.7) % Monocytes % 6.9 (4.7-12.5) % Eosinophils % 1.7 (0.7-5.8) % Basophils % 0.7 (0.1-1.2) % Absolute Granulocytes 6.21 H (1.56-6.13) x10^3/uL Basophils # 0.06 (0.01-0.08) x10^3/uL D-Dimer (0.0-0.50) mg/L Sodium (135-145) mmol/L Potassium (3.5-5.1) mmol/L Chloride (98-107) mmol/L Carbon Dioxide (22-30) mmol/L Anion Gap (5-15) MEQ/L BUN (7-17) mg/dL Creatinine (0.52-1.04) mg/dL Estimated GFR ML/MIN Glucose (74-106) mg/dL Lactic Acid (0.4-2.0) Calcium (8.4-10.2) mg/dL Total Bilirubin (0.2-1.3) mg/dL Direct Bilirubin (0.0-0.4) mg/dL AST (14-36) U/L ALT (0-35) U/L Alkaline Phosphatase (38-126) U/L Troponin I (0.000-0.033) ng/mL NT-Pro-B Natriuret Pep (<300) pg/mL Serum Total Protein (6.3-8.2) g/dL Albumin (3.5-5.0) g/dL - Progress Progress Note: 10/07/25 74-year-old female ho coronary artery disease, status post multiple stents 5 years ago+, followed closely by cardiology at [facility], presenting with several weeks of shortness of breath, with acute worsening of dyspnea x 1 week. Hypertensive at home 190-200, in ED 150-180. On exam, no evidence of volume overload, no peripheral edema, lung sounds are clear without wheezing or crackles. Bedside ultrasound with moderate systolic function, possible LA dilation; no pericardial effusion, no B-lines, IVC with some variability. Broad differential, though highest concern for cardiac etiologies given multiple risk factors, notably patient states GREGG is how she presented with her prior ACS episode without chest pain. Consider ACS, including unstable angina, and unstable anginal equivalent. Will obtain EKG, troponins serially. Less consistent with heart failure exacerbation given euvolemic, reassuring echo, unimpressive BNP. Also consider PE, no hypoxia or tachycardia on exam, will start with dimer, if positive proceed with CT PE. Less consistent with pulmonary infection, chest x-ray without obvious infiltrates, no fevers, no infectious symptoms. No other infectious symptoms including UTI, diarrhea, nausea, vomiting. No history of asthma or COPD. Exam without wheezing or crackles. Less consistent with primary pulmonary etiology though possible given former smoking history. Given the nature of presenting symptoms and possibility of emergent diagnosis, admission considered Per my independent interpretation EKG shows: Sinus bradycardia, left axis deviation. No ST elevations or depressions. Serial EKGs performed and grossly unchanged. Labs and imaging reviewed and interpreted by me. I have reviewed prior records: echo w/ EF 45% Collateral historians include daughter Consultants: [facility] cardiology, [facility] hospitalist, pharmacy consultant hospitalist Social determinants of health were reviewed. 22:23 Serial EKGs stable, negative troponins; less consistent with classic ACS. However no recent stress test, symptoms similar to prior ACS, thus highly concerning for an anginal equivalent. Patient took aspirin today. Discussed with patient's outpatient asphalt paving foreman at [facility]; due to time of the week would not be able to perform a diagnostic catheterization until the following week business days. No stress testing performed recently. Elevated dimer, however negative CT PE. no pulmonary infections identified. Trialed one- time DuoNeb, minimal improvement in symptoms. Continued to be hemodynamically stable, SBP 150s. Discussed with [facility], and in agreement that given there is no cardiology here, including stress testing, patient would be better served transferred to facility with cardiology capabilities. Discussed with [facility]ist, who is agreeable to accept the patient for observation and telemetry, possible stress testing. - Departure Clinical Impression: GREGG (dyspnea on exertion) Condition: Stable Critical Care Time: Yes Critical Care Time(excluding separately billable procedures): Critical 30-74 mins Referrals: EARNEST VALDEZ MD [Primary Care Provider, [facility]] - Follow up/PCP as directed
== END 2025-10-07 22:00 | disposition short-term general hospital (02) ==
LOC: ED 11:33
DX: R06.09 Other forms of dyspnea (principal); I10 Essential (primary) hypertension; Z79.02 Long term (current) use of antithrombotics/antiplatelets; Z79.84 Long term (current) use of oral hypoglycemic drugs; Z79.899 Other long term (current) drug therapy